=== PATIENT | male | born 1990 | race Caucasian/White ===

== ENCOUNTER 2023-04-21 23:55 | Inpatient (IN) | payer OTHER ==
[2023-04-22 01:04] VITALS: BMI 21.5
[2023-04-22] MEDS ORDERED: NALOXONE HCL (KLOXXADO) 8 MG SPRAY NS PRN (05:38)
[2023-04-22] MEDS ORDERED: LOPERAMIDE HCL 2 MG CAPSULE PO PRN (05:38)
[2023-04-22] MEDS ORDERED: MAG HYDROX/AL HYDROX/SIMETH 30 ML UNIT-DOSE CUP PO PRN (05:38)
[2023-04-22] MEDS ORDERED: NALOXONE HCL 0.4 MG/ML VIAL IM PRN (05:38)
[2023-04-22] MEDS ORDERED: BENZONATATE 200 MG CAPSULE PO PRN (05:38)
[2023-04-22] MEDS ORDERED: ACETAMINOPHEN 325 MG TABLET (FP) PO PRN (05:38)
[2023-04-22] MEDS ORDERED: IBUPROFEN 600 MG TABLET (FP) PO PRN (05:38)
[2023-04-22] MEDS ORDERED: ONDANSETRON *ODT* 4 MG TABLET SL PRN (05:38)
[2023-04-22] MEDS ORDERED: MAGNESIUM HYDROX 2400MG/30ML ORAL SUSPENSION 30 ML CUP PO PRN (05:38)
[2023-04-22] MEDS ORDERED: guaiFENesin 600 MG TABLET.ER (FP) PO PRN (05:38)
[2023-04-22] MEDS ORDERED: BENZOCAINE/MENTHOL (CHLORASEPTIC ) LOZENGE MM PRN (05:38)
[2023-04-22] MEDS ORDERED: IBUPROFEN 400 MG TABLET (FP) PO PRN (05:38)
[2023-04-22] MEDS ORDERED: POLYETHYLENE GLYCOL (HEALTHYLAX) 3350 17 GM PACKET PO PRN (05:38)
[2023-04-22] MEDS ORDERED: BISMUTH SUBSALICYLATE 524 MG/30 ML PO PRN (05:38)
[2023-04-22] MEDS: PRENATAL VITAMINS W/ FOLIC ACID TABLET (FP) PO SCH (10:10)
[2023-04-22] MEDS ORDERED: methaDONE HCL 10 MG TABLET (FOR DETOX USE ONLY) PO ONE (10:37)
[2023-04-22] MEDS ORDERED: cloNIDine HCL 0.1 MG TABLET PO PRN (10:37)
[2023-04-22] MEDS: METHOCARBAMOL 500 MG TABLET PO PRN ×2 (11:11→22:27)
[2023-04-22] MEDS: diazePAM 5 MG TABLET PO PRN (11:11)
[2023-04-22 11:16] LABS: HEMATOCRIT 41.3 % (35.4-49); HEMOGLOBIN 13.6 GM/dL (11.7-16.9); MCHC 32.9 g/dl (32.0-35.9); MEAN CELL VOLUME 85.2 fl (80-96); PLATELET COUNT 211 10^3/uL (134-434); RBC 4.85 M/mm3 (4.00-5.60); RDW 12.7 % (11.9-15.9); WHITE BLOOD COUNT 5.3 K/mm3 (4.0-10.0)
[2023-04-22 11:42] LABS: POTASSIUM 3.8 mmol/L (3.5-5.1)
[2023-04-22 11:49] LABS: ALBUMIN 3.6 g/dl (3.4-5.0); BLOOD UREA NITROGEN 14.2 mg/dL (7-18)
[2023-04-22 11:52] LABS: CREATININE 0.8 mg/dL (0.55-1.3)
[2023-04-22 11:54] LABS: BILIRUBIN,TOTAL 0.2 mg/dL (0.2-1)
[2023-04-22 11:55] LABS: TOT PROT 6.2 g/dl (6.4-8.2)
[2023-04-22 12:27] LABS: HIV INTERPRETATION NEGATIVE (NEGATIVE)
[2023-04-22] MEDS: MELATONIN 5 MG TABLETS PO SCH (22:27)
[2023-04-22] MEDS: THIAMINE HCL 100 MG TABLET (FP) PO SCH (22:27)
[2023-04-23] MEDS: diazePAM 5 MG TABLET PO PRN ×2 (09:48→21:06)
[2023-04-23] MEDS: PRENATAL VITAMINS W/ FOLIC ACID TABLET (FP) PO SCH (09:48)
[2023-04-23] MEDS: THIAMINE HCL 100 MG TABLET (FP) PO SCH (21:05)
[2023-04-23] MEDS: METHOCARBAMOL 500 MG TABLET PO PRN (21:05)
[2023-04-23] MEDS: MELATONIN 5 MG TABLETS PO SCH (21:05)
[2023-04-24] MEDS: diazePAM 5 MG TABLET PO PRN ×4 (05:29→22:09)
[2023-04-24] MEDS ORDERED: methaDONE HCL 10 MG TABLET (FOR DETOX USE ONLY) PO ONE (10:00)
[2023-04-24] MEDS: PRENATAL VITAMINS W/ FOLIC ACID TABLET (FP) PO SCH (10:28)
[2023-04-24] MEDS: MELATONIN 5 MG TABLETS PO SCH (22:08)
[2023-04-24] MEDS: METHOCARBAMOL 500 MG TABLET PO PRN (22:08)
[2023-04-24] MEDS: THIAMINE HCL 100 MG TABLET (FP) PO SCH (22:09)
[2023-04-24] MEDS: DICYCLOMINE HCL 10 MG CAPSULE PO PRN (22:10)
[2023-04-25] MEDS: diazePAM 5 MG TABLET PO PRN ×2 (05:11→10:09)
[2023-04-25] MEDS: METHOCARBAMOL 500 MG TABLET PO PRN ×2 (05:11→22:13)
[2023-04-25] MEDS: PRENATAL VITAMINS W/ FOLIC ACID TABLET (FP) PO SCH (10:10)
[2023-04-25] MEDS: MELATONIN 5 MG TABLETS PO SCH (22:13)
[2023-04-25] MEDS: THIAMINE HCL 100 MG TABLET (FP) PO SCH (22:13)
[2023-04-26 09:45] VITALS: BP 107/66; PULSE 80; RESP 18; TEMP 9721
[2023-04-26] MEDS ORDERED: methaDONE HCL 10 MG TABLET (FOR DETOX USE ONLY) PO ONE (10:00)
[2023-04-26] MEDS: PRENATAL VITAMINS W/ FOLIC ACID TABLET (FP) PO SCH (10:10)
[2023-04-26] MEDS: DICYCLOMINE HCL 10 MG CAPSULE PO PRN (10:12)
== END 2023-04-26 11:00 | disposition home or self-care (01) | DRG 773 ==
LOC: YASAS 23:55 → Y3N 04-22 05:57
PROVIDERS: ADMIT Allergy & Immunology; ATTEND Surgery
PROC: HZ2ZZZZ Detoxification Services for Substance Abuse Treatment (ICD-10-PCS; principal; 2023-04-22)
DX: F11.23 Opioid dependence with withdrawal (principal); F14.20 Cocaine dependence, uncomplicated; F12.20 Cannabis dependence, uncomplicated; F19.24 Other psychoactive substance dependence with psychoactive substance-induced mood disorder; F32.A Depression, unspecified; Z87.891 Personal history of nicotine dependence; Z56.0 Unemployment, unspecified
CPT/HCPCS: 36415; 80053; 85027; 86780; 87389; 87635; 93005; 93010; Q0162